=== PATIENT | male | born 1970 | race African-American/Black ===

== ENCOUNTER 2020-10-23 13:42 | Outpatient (CLI) | payer MEDICAID ==
[~2020-10-23] VITALS: Ht 190.5 cm; Wt 101.2 kg
[2020-10-23 13:57] VITALS: BP 135/88
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
== END 2020-10-23 15:42 | disposition home or self-care (01) ==
LOC: PAN 13:42
DX: K21.9 Gastro-esophageal reflux disease without esophagitis (principal); R63.4 Abnormal weight loss; Z68.27 Body mass index [BMI] 27.0-27.9, adult; K62.5 Hemorrhage of anus and rectum; K57.90 Diverticulosis of intestine, part unspecified, without perforation or abscess without bleeding; F12.90 Cannabis use, unspecified, uncomplicated; Z80.42 Family history of malignant neoplasm of prostate; R11.0 Nausea
CPT/HCPCS: G0463